=== PATIENT | male | born 1970 | race Caucasian/White ===

== ENCOUNTER 2022-06-01 22:24 | Emergency (ER) | payer BC, SELFPAY ==
[2022-06-01 22:26] VITALS: BP 161/97; PULSE 73; RESP 16; TEMP 36.7; O2SAT 98; BMI 26.6
[2022-06-01 22:31] VITALS: BP 148/90; PULSE 90; RESP 15; O2SAT 96
--- NOTE | 2022-06-01 22:37 | CTR_ITS ---
PROCEDURE INFORMATION: Exam: CT Abdomen And Pelvis Without Contrast Exam date and time: 06/01/2022 10:48 PM Age: 51 years old Clinical indication: Abdominal pain; Right; Patient HX: Sudden onset of RT flank pain today. History of renal stones. ; Additional info: Right flank pain TECHNIQUE: Imaging protocol: Computed tomography of the abdomen and pelvis without contrast. Radiation optimization: All CT scans at this facility use at least one of these dose optimization techniques: automated exposure control; mA and/or kV adjustment per patient size (includes targeted exams where dose is matched to clinical indication); or iterative reconstruction. COMPARISON: No relevant prior studies available. RADIATION DOSE METRICS: Total DLP (mGy-cm): 1058.16 FINDINGS: Lungs: The lung bases are clear. No effusion Liver: Normal. No mass. Gallbladder and bile ducts: No wall thickening, pericholecystic fluid or stones. Pancreas: Normal. No ductal dilation. Spleen: Normal. No splenomegaly. Adrenal glands: Normal. No mass. Kidneys and ureters: 2 mm mildly obstructing right UVJ stone. Stomach and bowel: Unremarkable. No obstruction. No mucosal thickening. Appendix: No evidence of appendicitis. Intraperitoneal space: Unremarkable. No free air. No significant fluid collection. Vasculature: Unremarkable. No abdominal aortic aneurysm. Lymph nodes: Unremarkable. No enlarged lymph nodes. Urinary bladder: Unremarkable as visualized. Reproductive: Unremarkable as visualized. Bones/joints: Unremarkable. No acute fracture. Soft tissues: Unremarkable. CT/CT kidney stone [id number] IMPRESSION: 2 mm mildly obstructing right UVJ stone.
--- NOTE | 2022-06-01 22:39 | ED_ITS ---
HPI - Back Pain/Injury General: Chief Complaint: Back Pain/Injury Stated Complaint: Low back and right side pain Time Seen by Provider: 06/01/22 22:37 History of Present Illness: Patient comes in with right flank pain. Patient reports history of kidney stones. Patient appears in moderate pain. Patient states pain started this evening about 1 hour prior to arrival. Associated symptoms: Deny fever(s) Review of Systems Const: Denies: fever(s) Card: Denies: chest pain Resp: Denies: dyspnea : Reports: flank pain Skin/Breast: Denies: rash Neuro: Denies: headache(s) Physical Exam Const: COMMON NORMALS: alert HENMT: HEAD & SCALP: normal to inspection Neck/C-Spine: COMMON NORMALS: full ROM Resp: COMMON NORMALS: normal respiratory effort and clear to auscultation bilaterally AUSCULTATION: clear to auscultation bilaterally Cardio: COMMON NORMALS: regular rate and regular rhythm RATE: regular rate RHYTHM: regular rhythm GI: COMMON NORMALS: Soft to palpation PALPATION: Yes Soft to palpation : BLADDER/KIDNEY EXAM: Yes CVA tenderness on the right Back/Pelvis: GENERAL BACK: Yes CVA tenderness Extremity: COMMON NORMALS: normal to inspection Neuro: SENSORIUM/ORIENTATION: Yes alert Skin: COMMON NORMALS: turgor normal GENERAL SKIN EXAM: turgor normal Course Vital Signs: Vital signs: Vital Signs Temperature 98.0 F 06/01/22 22:26 Pulse Rate 73 06/01/22 22:26 Respiratory Rate 16 06/01/22 22:26 Blood Pressure 161/97 06/01/22 22:26 Pulse Oximetry 98 06/01/22 22:26 Oxygen Delivery Me thod 06/01/22 22:26 MDM - Back Pain/Injury Medical Decision Making 51-year-old male patient comes in today with complaints of right flank pain. On exam patient has tenderness to percussion of the right CVA. Abdomen soft. Bowel sounds are present. Vital signs are normal except for some elevation of blood pressure. Differential diagnosis includes cholecystitis, appendicitis, r enal calculi. CT noted a renal stone in the distal right ureter, no other abnormalities were noted. Reviewed exam with patient with recommendations for treatment and follow-up. Patient reported understanding and agreed to plan. Labs : 06/01/22 22:51 06/01/22 22:51 Radiology Impressions Abdomen/Pelvis CT 06/01/22 22:37 IMPRESSION: 2 mm mildly obstructing right UVJ stone. Laboratory Results WBC 9.5 10^3/uL (4.0-10.0) 06/01/22 22:51 RBC 4.66 10^6/uL (4.1-5.3) 06/01/22 22:51 Hgb 14.6 g/dL (11.7-16.6) 06/01/22 22:51 Hct 42.5 % (42.0-52.0) 06/01/22 22:51 MCV 91.2 fl (80-94) 06/01/22 22:51 MCH 31.3 pg (28.0-34.0) 06/01/22 22:51 MCHC 34.4 g/dL (30.0-36.0) 06/01/22 22:51 RDW 13.1 % (12.1-15.1) 06/01/22 22:51 Plt Count 215 10^3/cmm (130-400) 06/01/22 22:51 MPV 10.7 fL (7.4-10.4) H 06/01/22 22:51 Neut % (Auto) 63.8 % 06/01/22 22:51 Lymph % (Auto) 27.1 % 06/01/22 22:51 [place] % (Auto) 6.4 % 06/01/22 22:51 Eos % (Auto) 2.0 % 06/01/22 22:51 Baso % (Auto) 0.4 % 06/01/22 22:51 Neut # (Auto) 6.08 10^3/uL (1.8-7.7) 06/01/22 22:51 Lymph # (Auto) 2.6 10^3/uL (0.8-4.8) 06/01/22 22:51 [place] # (Auto) 0.6 10^3/uL (0.2-0.9) 06/01/22 22:51 Eos # (Auto) 0.2 10^3/uL (0.0-0.8) 06/01/22 22:51 Baso # (Auto) 0.0 10^3/uL (0.0-0.1) 06/01/22 22:51 Nucleated RBC % (auto) 0 % 06/01/22 22:51 Nucleated RBCs # 0.0 /100WBC 06/01/22 22:51 Sodium 138 mmol/L (136-145) 06/01/22 22:51 Potassium 4.1 mmol/L (3.5-5.1) 06/01/22 22:51 Chloride 100 mmol/L (98-107) 06/01/22 22:51 Carbon Dioxide 24 mmol/L (22-29) 06/01/22 22:51 Anion Gap 18.1 (5-19) 06/01/22 22:51 BUN 18 mg/dL (6-20) 06/01/22 22:51 Creatinine 1.3 mg/dL (0.7-1.2) H 06/01/22 22:51 GFR Calculation 57.7 mL/min (90-130) L 06/01/22 22:51 Glucose 152 mg/dL (65-115) H 06/01/22 22:51 Calculated Osmolality 291 mOsm/kg (285-295) 06/01/22 22:51 Calcium 9.2 mg/dL (8.5-10.5) 06/01/22 22:51 Discharge Plan Discharge Patient Disposition: Home Clinical Impression: Ureter, calculus Condition: Stable Prescriptions: New hydrocodone-acetaminophen 5-325 mg tablet 1 tab PO Q6H PRN (Reason: pain) Qty: 14 0RF ondansetron 4 mg tablet,disintegrating 4 mg PO Q8H PRN (Reason: nausea and vomiting) Qty: 10 0RF Discharge Orders: Discharge ED (Routine); Ordered 06/01/22 Ordered By: Malvin Falcon Discharge Diet: Usual diet Discharge Activity: Increase activity as tolerated Patient Instructions: Kidney Stones (ED), Opioid Safety Activity Restrictions/Additional Instructions: Drink plenty of fluids. Use acetaminophen and ibuprofen for mild to moderate pain. Use hydrocodone for severe pain. Use Zofran as needed for nausea or vomiting. Follow-up with primary care or urologist for further evaluation and treatment. Return to ER for uncontrolled pain, fever greater than 100.4, or new concerns. Coding Level of Care Code ED Machine Bobbin Winder for Pedrog Fwd Exam Comprehensive
[2022-06-01] MEDS: HYDROmorphone 1 mg/mL INJ 1 mL IVP (22:53)
[2022-06-01] MEDS: ondansetron 2 mg/ML SDV 2 mL 4 MG IVP (22:53)
[2022-06-01] MEDS: ketorolac 30 mg/mL INJ 15 MG IVP (22:53)
[2022-06-01 23:18] LABS: Basophils % 0.4 %; Eosinophils # 0.2 10^3/uL (0.0-0.8); Hematocrit 42.5 % (42.0-52.0); Hemoglobin 14.6 g/dL (11.7-16.6); Lymphocytes # 2.6 10^3/uL (0.8-4.8); Lymphocytes % 27.1 %; Mean Corpuscular HGB Conc 34.4 g/dL (30.0-36.0); Mean Corpuscular Hemoglobin 31.3 pg (28.0-34.0); Mean Corpuscular Volume 91.2 fl (80-94); Mean Platelet Volume 10.7 fL (7.4-10.4); Monocytes # 0.6 10^3/uL (0.2-0.9); Monocytes % 6.4 %; Neutrophils # 6.08 10^3/uL (1.8-7.7); Neutrophils % 63.8 %; Nucleated Red Blood Cells % 0 %; Platelet Count 215 10^3/cmm (130-400); Red Blood Count 4.66 10^6/uL (4.1-5.3); Red Cell Distribution Width 13.1 % (12.1-15.1); White Blood Count 9.5 10^3/uL (4.0-10.0)
[2022-06-01 23:21] LABS: Anion Gap 18.1 (5-19); Blood Urea Nitrogen 18 mg/dL (6-20); Calcium 9.2 mg/dL (8.5-10.5); Carbon Dioxide 24 mmol/L (22-29); Chloride 100 mmol/L (98-107); Glomerular Filtration Rate 57.7 mL/min (90-130); Glucose 152 mg/dL (65-115); Osmolality Calculated 291 mOsm/kg (285-295); Potassium 4.1 mmol/L (3.5-5.1); Sodium 138 mmol/L (136-145)
[2022-06-02 01:16] VITALS: BP 148/90; PULSE 90; RESP 15; O2SAT 96
== END 2022-06-01 23:42 | disposition home or self-care (01) ==
PROVIDERS: Emergency Provider Nurse Practitioner Family
DX: N20.1 Calculus of ureter (principal)
CPT/HCPCS: 74176; 80048; 85025; 96374; 96375; 99285; J1170; J1885; J2405